=== PATIENT | female | born 1940 | race Caucasian/White ===

== ENCOUNTER 2018-12-02 10:10 | Emergency (ER) | payer MEDICARE, OTHER ==
[~2018-12-02] VITALS: Ht 152.4 cm; Wt 63.6 kg
[~2018-12-02 10:10] MED LIST: AMLO-218; ASPI-535; CLOP75TA19; CLOP75TA19 PO; HYDR100T25; INSU100I13; LOSA1TAB29 PO; RANI300C7 PO; SIMV20TA; SITA100T11 PO; [UNRECOGNIZED DRUG - CODE]
[2018-12-02 10:34] VITALS: Ht 152.4 cm; Wt 63.6 kg
--- NOTE | 2018-12-02 11:54 | ERD ---
ER Documentation Chief Complaint Chief Complaint PTBIB RA [id number] referred by clinic for blood in stool and B hand pain HPI 78-year-old female presents to the emergency department from one of the local clinics by ambulance. Patient has an underlying dementia and provides only limited insight into her presentation. The son, who is involved in the patient's care, later arrived in the emergency department and gave most of the history. Patient has a history of chronic anemia with a previous work-up including endoscopy and colonoscopy. She is already on treatment for this. She was doing well at home and went to her local clinic in order to complete paperwork for preoperative clearance for dental work. Patient has been asymptomatic with no chest pain, shortness of breath, blood loss or bleeding or any other complaints. At the doctor's office, it appears that a review of systems was performed indicating concerns over patient's chronic anemia in the ambulance was called. I have reviewed the c programmer pre-hospital care. Pre-hospital vital signs were reviewed. Pre-hospital diagnostic tests were reviewed. Upon arrival, patient remains essentially asymptomatic. ROS All systems reviewed and are negative except as per history of present illness. Medications Home Meds Reported Medications Ranitidine Hcl (Ranitidine Hcl) 300 Mg Capsule, 300 MG PO DAILY 04/07/12 Sitagliptin* (Januvia*) 100 Mg Tablet, 100 MG PO DAILY 04/07/12 Losartan/Hydrochlorothiazide (Hyzaar 100-25 Tablet) 1 Tab Tablet, 1 TAB PO DAILY 04/07/12 Clopidogrel Bisulfate (Plavix) 75 Mg Tablet, 75 MG PO DAILY 04/07/12 Hydralazine Hcl* (Hydralazine Hcl*) 100 Mg Tablet 01/04/12 Simvastatin* (Zocor*) 20 Mg Tablet 01/04/12 Insulin Aspart (Novolog) 100 U/Ml Insuln.pen 01/04/12 Clopidogrel Bisulfate (Plavix) 75 Mg Tablet 01/04/12 Atenolol* (Tenormin*) 100 Mg Tablet 01/04/12 Aspirin Ec (Aspir 81) 81 Mg Tablet. 01/04/12 Amlodipine Besylate* (Norvasc*) 10 Mg Tablet 01/04/12 Allergies Allergies: Coded Allergies: No Known Drug Allergy (Verified Allergy, Unknown, 04/26/12) PMhx/Soc History of Surgery: Yes (CHOLECYSTECTOMY) Anesthesia Reaction: No Hx Neurological Disorder: No Hx Respiratory Disorders: No Hx Cardiac Disorders: Yes (RI, CAD-stents) Hx Psychiatric Problems: No Hx Miscellaneous Medical Probl: Yes (HIGH CHOLESTEROL) Hx Alcohol Use: No Hx Substance Use: No Hx Tobacco Use: No Smoking Status: Never smoker FmHx Noncontributory for chief complaint with supportive son and daughter at bedside Physical Exam Vitals Vital Signs Date Temp Pulse Resp B/P (MAP) Pulse Ox O2 O2 Flow FiO2 Time Delivery Rate 12/02/18 97.9 73 22 219/79 98 10:34 (125) Physical Exam \GENERAL: Elderly female in no acute distress HEENT: Pupils equal, round, and reactive to light. EOMI. There is no scleral icterus. NECK: C-spine is soft and supple, there is no meningismus. There is no cervical lymphadenopathy. LUNGS: Clear to auscultation bilaterally. There are no rales, wheezes or rhonchi. HEART: Regular rate and rhythm, no murmurs, clicks, rubs or gallops. ABDOMEN: Soft, non-tender, non-distended. There are bowel sounds in all four quadrants. No rebound or guarding. EXTREMITIES: There is no peripheral cyanosis or edema. No focal swelling or erythema. NEURO: The patient moves all four extremities with 5/5 strength. Cranial nerves II - XII are intact. Normal gait. Alert and oriented SKIN: There is no apparent rash or petechiae. HEME/LYMPHATIC: There is no evidence of excessive bruising or lymphedema. PSYCHIATRIC: The patient does not appear anxious or depressed. Result Diagram: 12/02/18 1031 12/02/18 1031 Results 24 hrs Laboratory Tests Test 12/02/18 10:31 White Blood Count 8.2 10^3/ul Red Blood Count 3.61 10^6/ul Hemoglobin 9.4 g/dl Hematocrit 30.7 % Mean Corpuscular Volume 85.0 fl Mean Corpuscular Hemoglobin 26.0 pg Mean Corpuscular Hemoglobin Concent 30.6 g/dl Red Cell Distribution Width 15.6 % Platelet Count 344 10^3/UL Mean Platelet Volume 10.7 fl Immature Granulocytes % 0.400 % Neutrophils % 65.6 % Lymphocytes % 24.5 % Monocytes % 6.9 % Eosinophils % 1.9 % Basophils % 0.7 % Nucleated Red Blood Cells % 0.0 /100WBC Immature Granulocytes # 0.030 10^3/ul Neutrophils # 5.4 10^3/ul Lymphocytes # 2.0 10^3/ul Monocytes # 0.6 10^3/ul Eosinophils # 0.2 10^3/ul Basophils # 0.1 10^3/ul Nucleated Red Blood Cells # 0.0 10^3/ul Prothrombin Time 14.0 Sec Prothrombin Time Ratio 1.1 INR International Normalized Ratio 1.07 Activated Partial Thromboplast Time 33.4 Sec Sodium Level 142 mmol/L Potassium Level 6.1 mmol/L Chloride Level 107 mmol/L Carbon Dioxide Level 24 mmol/L Anion Gap 11 Blood Urea Nitrogen 24 mg/dl Creatinine 1.36 mg/dl Est Glomerular Filtrat Rate mL/min mL/min Glucose Level 246 mg/dl Calcium Level 9.3 mg/dl Total Bilirubin 0.3 mg/dl Direct Bilirubin 0.00 mg/dl Indirect Bilirubin 0.3 mg/dl Aspartate Amino Transf (AST/SGOT) 18 IU/L Alanine Aminotransferase (ALT/SGPT) 11 IU/L Alkaline Phosphatase 81 IU/L Troponin I < 0.012 ng/ml Total Protein 7.9 g/dl Albumin 4.0 g/dl Globulin 3.90 g/dl Albumin/Globulin Ratio 1.02 Procedures/MDM Patient was taken to a room, seen and evaluated. Comfort measures were initiated. Diagnostic tests were ordered and reviewed. 3 LEAD RHYTHM STRIP: Normal sinus rhythm without ectopy EK lead EKG reviewed by myself: Normal Sinus Rhythm Normal [place] and intervals Nonspecific ST and T wave changes with T wave inversions in the inferolateral leads. No ST elevation Impression: Nonspecific EKG RADIOLOGY: Reviewed with the radiologist REEVALUATION: 1155: Diagnostic tests were appreciated and discussed with both the patient and her son. Patient remained asymptomatic and the son felt comfortable taking her home. MEDICAL DECISION MAKIN-year-old female presents the emergency department from a care facility for nonspecific symptoms. A diagnostic work-up was performed given the uncertainty of her complaints. She was found to have an anemia, which is chronic and stable and has already been worked up by her doctor as well as at an outside hospital recently. She has no evidence of active blood loss and does not require transfusion. Although her EKG is abnormal, she has no symptoms that would indicate ischemic cardiac disease. Overall, patient appears to be clinically nontoxic and appropriate for discharge. Departure Diagnosis: Primary Impression: Anemia Condition: Stable Patient Instructions: Anemia Additional Instructions: See your doctor for follow-up as discussed. Take a copy of your test results, if appropriate, to this follow-up visit. See your doctor or return here if your symptoms do not improve as expected. At any time, please return to the emergency department for any change or worsening in her symptoms. LEILANI [place] Dec 02, 2018 11:54
[2018-12-02 11:56] VITALS: BP 155/63; PULSE 74; RESP 20
== END 2018-12-02 12:17 | disposition home or self-care (01) ==
LOC: E/R 10:10
DX: D64.9 Anemia, unspecified (principal); I25.10 Atherosclerotic heart disease of native coronary artery without angina pectoris; I25.2 Old myocardial infarction; Z79.82 Long term (current) use of aspirin; Z98.61 Coronary angioplasty status; Z79.01 Long term (current) use of anticoagulants; Z79.4 Long term (current) use of insulin
CPT/HCPCS: 36415; 71045; 80053; 84484; 85025; 85610; 85730; 86850; 86900; 86901; 93005